=== PATIENT | male | born 1975 | race Caucasian/White ===

== ENCOUNTER 2020-04-14 12:39 | Emergency (ER) | payer BC ==
[2020-04-14 12:47] VITALS: PULSE 75; RESP 18
[2020-04-14] MEDS ORDERED: LIDOCAINE 1% INJ 10MG/ML (20 ML MDV) SQ ONE (13:01)
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
--- NOTE | 2020-04-14 13:31 | XR ---
EXAMINATION TYPE: XR ribs RT w pa chest xray DATE OF EXAM: 04/14/2020 COMPARISON: NONE HISTORY: Pain TECHNIQUE: Single view of the chest 4 views of the ribs are submitted. FINDINGS: The lungs are clear. No Evidence for pneumothorax. No evidence for focal contusion. Medi astinal structures are midline. Evaluation of the ribs fails to demonstrate evidence for displaced r ib fracture or secondary sign of rib fracture. IMPRESSION: Negative study
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
[2020-04-14 14:33] VITALS: BP 142/85; TEMP 98.3
== END 2020-04-14 14:33 | disposition home or self-care (01) ==
LOC: EC 12:39
DX: S06.0X0A Concussion without loss of consciousness, initial encounter (principal); S01.01XA Laceration without foreign body of scalp, initial encounter; S20.211A Contusion of right front wall of thorax, initial encounter; W22.8XXA Striking against or struck by other objects, initial encounter; Y93.89 Activity, other specified; Y92.89 Other specified places as the place of occurrence of the external cause
CPT/HCPCS: 99284; 12002; 71101; 70450; J2001